=== PATIENT | female | born 1950 | race Caucasian/White ===

== ENCOUNTER 2023-09-27 05:52 | Day surgery (SDC) | payer OTHER, SELFPAY ==
--- NOTE | 2023-09-06 12:28 | HPS.HSE ---
Family Physician
-
Family Physician: NOT KNOW UNKNOWN - PT DOES
Chief Complaint
-
Paroxysmal atrial fibrillation.
History of Present Illness
The patient is a 73 year old female presenting today for paroxysmal atrial fibrillation. The patient reports a history of palpitations and dyspnea secondary to this diagnosis. She describes palpitations intermittently since her 20s;
however, her atrial fibrillation was diagnosed more recently during a hospital presentation to [facility] in [place], [place] where she was found to be in atrial fibrillation with rapid ventricular rates. She is on current pharmacological therapy
with Metoprolol Succinate. She is compliant with Eliquis for oral anticoagulation. She notes that her symptoms associated with her arrhythmia greatly interfere with her activities of daily living and are overall impacting her quality of life. She
also reports that her Metoprolol causes her to feel fatigued, dizzy, and nauseous. She is interested in pursuing pulmonary vein isolation for further symptom management and to hopefully stop her beta grey in the near future. She denies any
current complaints today such as chest pain, shortness of breath, vomiting, diarrhea, lightheadedness, cough, sore throat, or fever.
Medical History
Past Medical History
Past Medical History: Reports Other
Additional Past Medical History:
1. Paroxysmal atrial fibrillation, pharmacological therapy with Metoprolol Succinate, oral anticoagulation with Eliquis.
2. Paroxysmal atrial tachycardia.
3. PACs.
4. Hyperlipidemia.
5. Borderline hypotension.
6. History of near syncope.
7. Nephrolithiasis, asymptomatic.
8. Viral hepatitis associated with remote mononucleosis.
9. Vertigo.
10. Cervical dysplasia, status post conization.
11. Bilateral cataracts.
12. Osteoporosis.
Past Surgical History: Reports Other
Additional Past Surgical History:
1. Right wrist fracture repair.
2. Nasal reconstruction.
3. Right big toe surgery.
4. Cervix conization.
5. Tonsillectomy.
6. Colonoscopy x4.
Social History
Tobacco: Non-smoker
Alcohol: None
Personal:
Living: Other (She lives in a 1 story home with her spouse. )
Family History
Family History: Not pertinent
Allergies / Home Medications
Allergy/Medication List:
Home medications:
1. Eliquis 5 mg p.o. twice a day.
2. Atorvastatin 10 mg p.o. at noon.
3. Caltrate plus Vitamin D 1 tablet p.o. twice a day.
4. Centrum multivitamin 1 tablet p.o. daily.
5. Metoprolol Succinate 12.5 mg p.o. daily.
6. PreserVision 1 tab p.o. twice a day.
Allergies: No known allergies.
Adverse drug reactions: Codeine. Pseudoephedrine.
Review of Systems
-
A 12 point ROS was completed and negative except as noted: Yes
Physical Exam
Vital Signs
Blood pressure 110/66. Heart rate 70. Respirations 18. Pulse ox 100% on room air.
Height 5 feet, 3 inches. Weight 44 kg. BMI 17.2.
Physical Exam
General: Well Developed, Well Nourished and No Apparent Distress
HEENT: NormoCephalic, Moist mucous membranes, Atraumatic and PERRLA
Respiratory: Clear
Cardiac: Regular Rhythm
GI: Soft, Non Tender and Non Distended
Musculoskeletal: No Edema and Normal Gait & Station
Skin: Warm and Dry
Neuro: AO x 3 and Nonfocal/grossly intact
Laboratory Results
-
DIAGNOSTIC STUDIES as of 09/06/2023: White blood cell count 5.2. Hemoglobin 12.9. Platelet count 192,000. PT 14.5. INR 1.13. Sodium 139. Potassium 4.9. BUN 24. Creatinine 0.9. Glucose 86. Calcium 10.2. Magnesium 2.3. AST 27. ALT 19. Albumin 4.5.
Type and screen A positive.
EKG 09/06/2023: Sinus rhythm with short ID.
Chest CT 09/06/2023: Normal, conventional pulmonary venous anatomy. Suspected, small pericardial cyst just below the right inferior pulmonary vein measuring 12 x 7 mm. No left atrial filling defect/thrombus is identified.
Echocardiogram 04/29/2023: Ejection fraction is 55-70%. The PASP is estimated at 24 mmHg.
Nuclear stress test 06/11/2023: Normal perfusion study. Stress ejection fraction is 76%.
Impression/Plan
-
IMPRESSION/PLAN:
1. Paroxysmal atrial fibrillation: The patient is in need of pulmonary vein isolation with Dr. Dima Gruber on 09/27/2023. The benefits and risks of the procedure have been explained to the patient. The patient understands these risks and
wishes to proceed. She will not be required to undergo a pre-procedural transesophageal echocardiogram as she has been compliant with her home oral anticoagulation. She will hold her Eliquis the night before and morning of her procedure as advised
by her surgeon. She will take no medications the morning of her procedure.
[2023-09-06 13:27] VITALS: BMI 17.2
[2023-09-06 13:43] LABS: % Basophils 0.6 % (0-2); % Eosinophils 0.6 % (0-6); % Immature Granulocytes 0.2 % (0-0.5); % Lymphocytes 32.2 % (20.5-51.1); % Monocytes 9.2 % (1.7-9.3); % Neutrophils 57.2 % (42.2-75.2); Absolute Lymphocytes 1.7 10^3/uL (1.2-3.4); Absolute Monocytes 0.5 10^3/uL (0.1-0.6); Hematocrit 38.1 % (37.0-47.0); Hemoglobin 12.9 g/dL (12.0-16.0); Mean Corp Hgb Conc. 33.9 g/dL (33.0-37.0); Mean Corpuscular Hgb 30.3 pg (27.0-31.0); Mean Corpuscular Volume 89.4 fL (81.0-99.0); Mean Platelet Volume 11.6 fL (7.4-10.4); Nucleated Red Blood Cells % 0 %; Platelet Count 192 10^3/uL (130-400); Red Blood Cell Count 4.26 10^6/uL (4.20-5.40); Red Cell Dist. Width 14.5 % (11.5-14.5); White Blood Cell Count 5.2 10^3/uL (4.8-10.8)
[2023-09-06 13:58] LABS: INR 1.13; PT 14.5 Sec (11.4-14.6)
[2023-09-06 14:09] LABS: ALT (SGPT) 19 U/L (0-35); AST (SGOT) 27 U/L (14-36); Albumin 4.5 g/dl (3.5-5.0); Alkaline Phosphatase 91 U/L (38-126); Blood Urea Nitrogen 24 mg/dl (7-17); Calcium 10.2 mg/dl (8.4-10.2); Carbon Dioxide 30 mmol/L (22-30); Chloride 102 mmol/L (98-107); Estimated Creatinine Clearance 38 ml/min; Glucose 86 mg/dl (70-99); Magnesium 2.3 mg/dl (1.6-2.3); Potassium 4.9 mmol/L (3.5-5.1); Sodium 139 mmol/L (135-145); Total Bilirubin 0.4 mg/dl (0.2-1.3); Total Protein 7.1 g/dl (6.3-8.2); eGFR > 60.00
[2023-09-27] VITALS (23 sets, daily range): BP systolic 89–113; BP diastolic 49–58; BMI 16.7
--- NOTE | 2023-09-27 07:59 | ITS.CL.ABL ---
[facility] - Ablation
Ablation
Procedure Report:
ELECTROPHYSIOLOGIC STUDY AND POSSIBLE ABLATION
DATE: September 27, 2023
Primary Care Provider: Dr Audrey Perez
Primary Boiler Testing Technician: Dr Igor Jeff
INDICATION:
Symptomatic Atrial Fibrillation.
Paroxysmal
HISTORY: See H and P.
Symptomatic AF, poorly controlled with attempted medical therapy
HAS-BLED: 1
Age
CHADSVASc: 2
Age
F Gender
PRESENTING RHYTHM: SR
HISTORY: See H and P.
Symptomatic AF, poorly controlled with attempted medical therapy.
She has described palpitations intermittently since her 20s, atrial fibrillation was recently diagnosed during a hospital presentation ([facility] in [facility] ) for severe palpitations where she was found to be in atrial fibrillation with
rapid ventricular rates. She was treated with diltiazem and spontaneously converted back to sinus rhythm. Since that time she has monitored her rhythm using Kardia and at times finds recurrences of atrial fibrillation as well as short runs of PAT
and sinus rhythm with PACs.
Review of medical records show that flecainide 50 mg twice daily was added to her medical regimen on June 25, 2023. Flecainide subsequently discontinued.
Medical records also noted that she is known to have chronic borderline hypotension with systolic blood pressures often 80 to 100 mmHg.
There is report of a nuclear scan from June 11, 2023 noting normal myocardial perfusion ejection fraction 76%.
There is report of a 48-hour Holter from May 08, 2023 demonstrating sinus rhythm with a heart rate of 69 bpm as well as PACs and runs of paroxysmal atrial tachycardia. Symptoms correlated to sinus rhythm as well as runs of paroxysmal atrial
tachycardia and PACs as well as PVCs
Echocardiogram from April finds normal left ventricular size and function with ejection fraction estimated at 55 to 70%, no wall motion abnormalities. Normal size left and right atria. There is no finding of significant valvular
disease.
ANTICOAGULATION: Apixaban
'TIME-OUT': called and confirmed.
SEDATION/ANESTHESIA: provided via the anesthesia department using general anesthesia.
PROCEDURE:
Ultrasound Guidance performed by az was utilized for femoral venous Vascular Access b/l.
A decapolar CS catheter was placed within the CS for mapping and pacing.
The intracardiac ultrasound catheter was positioned in the RA for continuous intracardiac ultrasound imaging.
Heparin bolus and infusion to target ACT at 300 -350 seconds was administered. Transseptal puncture was performed. This entailed advancing a sheath with dilator into the superior vena cava and withdrawing both (monitoring intracardiac ultrasound,
fluoroscopy and tip pressure) with the tip oriented toward the atrial septum. The fossa ovalis was engaged (indicated by sudden displacement of the sheath tip as well as tenting of the fossa seen on intracardiac ultrasound).
AcWinWeb transseptal system was used. Left atrial catheter position was confirmed by echocardiographic imaging, pressure monitoring (LA mean pressure 6 mm Hg) and fluoroscopy. The sheath was advanced over the dilator and positioned in the left
atrium.
The multipolar mapping catheter was initially positioned through the transseptal sheath for high density mapping.
Geometry and voltage mapping was performed using the Floorball Gear multipolar grid catheter. Navex was utilized for three-dimensional electroanatomical mapping.
A 3-D map was created using Navex. A 3-D reconstructed CT image was compared to the 3-D Navex map to assist in anatomic evaluation, mapping and ablation.
The Genapsys Pulse Select PFA catheter and system was used for cardiac ablation. Catheter positioning was guided and confirmed using both I.C.E. and fluoroscopy.
PV isolation approach was used to electrically isolate each PV ostia, LSPV, LIPV, RSPV, RIPV.
Additional ablation lesion set was then accomplished to obtain wide area circumferential ablation around each of the pulmonary vein sets.
Remapping with the Floorball Gear multipolar grid catheter found that all PVPs were eliminated at each vein demonstrating entrance block. Also pacing from the multipolar mapping catheter around the the circumference of the ostia was performed at 10 ma and
2.0 msec output to assess for exit block. This demonstrated electrical isolation at each of the pulmonary vein ostia.
She has a rather small left atrium and remapping demonstrated very narrow channel of intact tissue/conduction along the posterior wall of the left atrium likely a consequence of the diameter size of the spiral ablation catheter within the small left
atrium. Furthermore, with catheter manipulation at the posterior wall of the left atrium there were burst of atrial tachycardia arising from the posterior wall of the left atrium. Clinically outpatient monitoring has demonstrated paroxysmal atrial
tachycardia in addition to atrial fibrillation. More detailed mapping of the posterior wall of the left atrium suggested a narrow channel of conduction along the superior posterior portion of the left atrium and in this area burst of atrial
tachycardia were observed. The ablation catheter was substituted and pulse electric field ablation was delivered targeting the posterior wall of the left atrium as a source for her paroxysmal atrial tachycardia. This resulted in full electrical
isolation of the posterior wall of the left atrium.
Programmed electrical stimulation was then performed and failed to induce any sustained arrhythmias.
I.C.E. :
Pre-Ablation Post-Ablation
LVEF: 55 % 55 %
WMA: none none
Pericardial effusion: none none
COMPLICATIONS:
none
SUMMARY:
- Mapping and ablation to isolate the PVs
- Additional AF ablation set after PVI ([facility]).
- Mapping and ablation of second tachycardia (LA posterior wall tachycardia)
- 3-D Electroanatomical Mapping
- Intracardiac Ultrasound
Post ablation, I discussed today's findings and results with the patient's , Reginaldo.
RECOMMENDATIONS:
- Observe in monitored bed.
- Maintain oral anticoagulation.
- Discontinue metoprolol
- Office visit with me in 3 months.
Copy to:
Dr Audrey Perez
Dr Igor Jeff
[2023-09-27 08:44] LABS: ACT-LR - POC 268 Seconds (116-155)
[2023-09-27 09:05] LABS: ACT-LR - POC 343 Seconds (116-155)
[2023-09-27 09:24] LABS: ACT-LR - POC 298 Seconds (116-155)
[2023-09-27] MEDS: ANESTHETIC LOZENGE 1 LOZENGE PO (11:33)
== END 2023-09-27 14:35 | disposition home or self-care (01) ==
LOC: CATH 05:52
PROVIDERS: ATTENDING PHYSICIAN Internal Medicine Cardiovascular Disease; FAMILY PHYSICIAN Family Medicine
DX: I48.0 Paroxysmal atrial fibrillation (principal); I47.19 Other supraventricular tachycardia; R00.2 Palpitations; E78.5 Hyperlipidemia, unspecified; R42 Dizziness and giddiness; Z79.01 Long term (current) use of anticoagulants
CPT/HCPCS: C1732; C1894; C1733; C1769; C1730; C1892; C1766; C1759; 36415; 75572; 76937; 80053; 83735; 85025; 85347; 85610; 86850; 86900; 86901; 93005; 93655; 93656; 93657; Q9967